=== PATIENT | male | born 1960 | race Two or more races ===

== ENCOUNTER 2017-11-26 09:09 | Emergency (ER) | payer SELFPAY ==
[2017-11-26 10:05] VITALS: BP 128/63; PULSE 78; TEMP 98.1; BMI 33.9
--- NOTE | 2017-11-26 11:43 | PDOC ---
History of Present Illness - General Chief Complaint: Rash Stated Complaint: shingles / LT SIDE PAIN Time Seen by Provider: 11/26/17 11:27 History Source: Patient Exam Limitations: No Limitations - History of Present Illness Initial Comments: 11/26/17 11:38 Pt. is a 57 y/o M with PMH of ID s/p ICD, HTN, HLD, DM who presents to the ED c/ o a rash to the L side of his abdomen for approximately 7 days. He states that the rash hurts and appears to look like blisters. He thinks he has the shingles. Denies fevers, chills, visual changes, n/v/d. Past History - Travel Traveled outside of the country in the last 30 days: No Close contact w/someone who was outside of country & ill: No - Past Medical History Allergies/Adverse Reactions: Allergies Allergy/AdvReac Type Severity Reaction Status Date / Time No Known Allergies Allergy Verified 11/26/17 09:57 Home Medications: Ambulatory Orders Valacyclovir HCl [Valtrex] 1,000 mg PO TID #21 tablet 11/26/17 Cardiac Disorders: Yes COPD: No Diabetes: Yes HTN: Yes Hypercholesterolemia: Yes - Surgical History Cardiac Surgery: Yes (card stent, AICD) - Suicide/Smoking/Psychosocial Hx Smoking History: Never smoked Have you smoked in the past 12 months: No Information on smoking cessation initiated: No Hx Alcohol Use: No Drug/Substance Use Hx: No Substance Use Type: None Review of Systems - Review of Systems Able to Perform ROS?: Yes Comments:: 11/26/17 11:45 CONSTITUTIONAL: Absent: fever, chills, diaphoresis, generalized weakness, malaise, loss of appetite HEENT: Absent: rhinorrhea, nasal congestion, throat pain, throat swelling, difficulty swallowing, mouth swelling, ear pain, eye pain, visual Changes CARDIOVASCULAR: Absent: chest pain, loss of consciousness, palpitations, irregular heart rate, peripheral edema RESPIRATORY: Absent: cough, shortness of breath, dyspnea with exertion, orthopnea, wheezing, stridor, hemoptysis GASTROINTESTINAL: Absent: abdominal pain, abdominal distension, nausea, vomiting, diarrhea, constipation, melena, hematochezia GENITOURINARY: Absent: dysuria, frequency, urgency, hesitancy, hematuria, flank pain, genital pain MUSCULOSKELETAL: Absent: myalgia, arthralgia, joint swelling SKIN: PResent: rash to L abdomen Absent:itching, pallor HEMATOLOGIC/IMMUNOLOGIC: Absent: easy bleeding, easy bruising, lymphadenopathy, frequent infections ENDOCRINE: Absent: unexplained weight gain, unexplained weight loss, heat intolerance, cold intolerance NEUROLOGIC: Absent: headache, focal weakness or paresthesias, dizziness, unsteady gait, seizure, mental status changes, bladder or bowel incontinence PSYCHIATRIC: Absent: anxiety, depression, suicidal or homicidal ideation, hallucinations. Is the patient limited Danish proficient: No *Physical Exam - Vital Signs Last Vital Signs Temp Pulse Resp BP Pulse Ox 98.1 F 78 18 128/63 100 11/26/17 09:59 11/26/17 09:59 11/26/17 09:59 11/26/17 09:59 11/26/17 09:59 - Physical Exam Comments: 11/26/17 11:45 GENERAL: The patient is awake, alert, and fully oriented, in no acute distress. HEAD: Normal with no signs of trauma. EYES: Pupils equal, round and reactive to light, extraocular movements intact, sclera anicteric, conjunctiva clear. EXTREMITIES: Normal range of motion, no edema. NEUROLOGICAL: Normal speech, normal gait. PSYCH: Normal mood, normal affect. SKIN: Red vesicles to the L abdomen in a linear pattern suggestive of a dermatome consistent with shingles. Warm, Dry, normal turgor. Medical Decision Making - Medical Decision Making 11/26/17 11:47 Pt. is a 57 y/o M with PMH of ID s/p ICD, HTN, HLD, DM who presents to the ED with shingles for approximately 7 days. Will treat with valacyclovir at this time. Will d/c home with PCP follow up. Pt understands all d/c instructions and all questions were answered at this time. *DC/Admit/Observation/Transfer Diagnosis at time of Disposition: Shingles Qualifiers: Herpes zoster complications: without complications Qualified Code(s): B02.9 - Zoster without complications - Discharge Dispostion Disposition: HOME Condition at time of disposition: Good Admit: No - Referrals Referrals: Adam Mehta MD [Staff Physician] - - Patient Instructions Printed Discharge Instructions: DI for Shingles Additional Instructions: You have shingles. There is also noted herpes zoster. Please take the Valtrex as prescribed 3 times a day for one week. Please avoid children under the age of 4 and women as to prevent the spread of the infection. Please take ibuprofen 800mg three times a day to help with your pain. Please follow-up with your primary care doctor later this week. Return to the emergency department if you have worsening of your rash, fevers, chills, or any changes in your symptoms. - Post Discharge Activity
== END 2017-11-26 11:52 | disposition home or self-care (01) ==
LOC: JERFT 09:09 → JER 09:09 → JERFT 11:52
DX: B02.9 Zoster without complications (principal); I25.10 Atherosclerotic heart disease of native coronary artery without angina pectoris; I10 Essential (primary) hypertension; Z95.5 Presence of coronary angioplasty implant and graft; Z95.810 Presence of automatic (implantable) cardiac defibrillator; E11.9 Type 2 diabetes mellitus without complications; E78.5 Hyperlipidemia, unspecified; I25.2 Old myocardial infarction
CPT/HCPCS: 99281-25